=== PATIENT | female | born 1995 | race Hispanic/Latino ===

== ENCOUNTER 2019-02-21 19:15 | Inpatient (IN) | payer OTHER ==
[2019-02-21 23:21] VITALS: BMI 31.6
[2019-02-22] MEDS ORDERED: Misoprostol 100 MCG TAB ONE (00:02)
[2019-02-22] MEDS ORDERED: Acetaminophen 500 MG TAB PO PRN (00:08)
[2019-02-22] MEDS ORDERED: hydrALAZINE 20 MG/ML VIAL SLOW IVP PRN ×2 (00:08→23:42)
[2019-02-22] MEDS ORDERED: Ondansetron PF 4 MG/2 ML Vial IVP PRN ×3 (00:08→23:42)
[2019-02-22] MEDS ORDERED: Promethazine HCl 25 MG/ML VIAL IM PRN ×2 (00:08→12:56)
[2019-02-22] MEDS ORDERED: Butorphanol Tartrate 1 MG/ML VIAL SLOW IVP PRN (00:08)
[2019-02-22] MEDS ORDERED: Misoprostol 200 MCG TAB RC PRN (00:15)
[2019-02-22] MEDS ORDERED: Methylergonovine 0.2 MG/ML VIAL IM PRN (00:15)
[2019-02-22] MEDS ORDERED: Lidocaine 1% (PF) 30 ML VIAL SC PRN (00:15)
[2019-02-22] MEDS ORDERED: Carboprost 250 MCG/ML AMP IM PRN (00:15)
[2019-02-22] MEDS ORDERED: NS w/ Oxytocin 10 units 500 ML IV SCH ×2 (00:15)
[2019-02-22 00:26] LABS: Mean Corpuscular HGB CONC 35.3 g/dL (32.0-36.0); Mean Corpuscular Hemoglobin 30.8 pg (27.0-31.0); Mean Corpuscular Volume 87.1 fL (78.0-98.0); Mean Platelet Volume 12.5 fL (7.4-10.4); Platelet Count 114 thou/uL (130-400); RBC Distribution Width 12.8 % (11.5-14.5); Red Blood Cell (RBC) Count 4.22 mill/uL (4.20-5.40); White Blood Cell (WBC) Count 6.3 thou/uL (4.8-10.8)
[2019-02-22 01:00] LABS: Syphilis Antibody Nonreactive (Nonreactive); Syphilis Antibody Index 0.02 S/CO (<1.00 Non-Reactive)
[2019-02-22 01:01] LABS: HBSAg Index 0.16 S/CO (0-0.99); Hep B Surf Ag Non-Reactive S/CO (NonReactive)
[2019-02-22] MEDS: Misoprostol 100 MCG TAB VAG SCH ×3 (03:15→08:11)
[2019-02-22] MEDS ORDERED: Penicillin G Potassium 5 MILL.UNITS in Sodium Chloride 0.9% 100 ML IVPB SCH (06:00)
--- NOTE | 2019-02-22 08:28 | PDOC.LDHP ---
Labor and Delivery H&P Chief complaint: scheduled induction HPI: Pt is a 24yo G1 @ 40.2 weeks here for elective IOL. Current gestational age (weeks): 40 Due date: 02/20/19 Dating criteria: last menstrual period, first trimester ultrasound Grav: 1 Para: 0 Current complications: none Abnormal US findings: No Current medications: pre- vitamins Previous surgical history: none Allergies/Adverse Reactions: Allergies Allergy/AdvReac Type Severity Reaction Status Date / Time No Known Allergies Allergy Verified 02/21/19 23:13 Social history: none - Physical Exam Vital signs reviewed and normal: yes General: resting Heart: RRR Lungs: CTAB Abdomen: gravid Extremeties: no edema FHT: category 1 - Vaginal Exam cm dilated: 1 Station: -3 - OB Labs Blood type: O RH: positive Antibody Screen: negative HIV: negative RPR: negative HEPSAg: negative 1 hour GCT: negative GBS: positive Urine drug screen: negative Rubella: immune - Assessment L&D Assessment: elective induction at term - Plan Plan: admit to L&D, cervical ripening, labor augmentation if indicated, GBS antibiotic prophylaxis, informed consent obtained, anesthesia consult for pain management -: A/P: G1 @ 40.1 here for IOL. Will continue cervical ripening at this time, difficult exam due to patient discomfort-pt plans to get an epidural. FHT reassuring.
[2019-02-22] MEDS ORDERED: Fentanyl 4 mcg/Bup 0.1% Cadd 100 ML ONE ×2 (11:05→18:34)
[2019-02-22] MEDS ORDERED: Penicillin G Potassium 5 MILL.UNITS VIAL ONE (12:22)
--- NOTE | 2019-02-22 12:23 | PDOC.LDPN ---
Labor & Delivery Progress Note - Subjective Subjective: comfortable - Objective Vital signs reviewed and normal: yes General: NAD Uterine fundus: non tender Dilation: 2 Effacement: 90% Station: -1 FHT: category 1 Hester contractions every: 2 AROM: clear fluid - Assessment (1) 40 weeks gestation of Code(s): Z3A.40 - 40 WEEKS GESTATION OF Current Visit: Yes Status : Acute Plan: continue plan of care -: A/P: IOL @ 40.2 weeks, AROM now with favorable cervix, will start PCN for GBS+, pitocin when indicated.
[2019-02-22] MEDS: Lactated Ringer's 1,000 ML IV SCH (12:54)
[2019-02-22] MEDS ORDERED: Lactated Ringer's 500 ML IV PRN (12:56)
[2019-02-22] MEDS ORDERED: Naloxone HCl 0.4 mg/ml Vial IVP PRN ×2 (12:56)
[2019-02-22] MEDS ORDERED: diphenhydrAMINE 50 MG/ML VIAL IVP PRN (12:56)
[2019-02-22] MEDS ORDERED: ePHEDrine/0.9% NaCl/PF SYRINGE 50 mg/10 ml SLOW IVP PRN (12:56)
[2019-02-22] MEDS ORDERED: Acetaminophen 325 MG TAB PO PRN (12:56)
[2019-02-22] MEDS ORDERED: Communication Order-Pharmacy FS SCH (13:00)
[2019-02-22] MEDS ORDERED: Fentanyl 4 mcg/Bupivacaine 0.1% Cassette 100 ML EPIDURAL SCH (13:00)
[2019-02-22] MEDS: Penicillin G 2.5 MILL.units 50 ML IVPB SCH (17:10)
--- NOTE | 2019-02-22 20:44 | PDOC.EVN ---
Event Note - Event Note Event Note: Patient is complete, has been pushing about an hour, good efforts and descent. Anticipate .
[2019-02-22] MEDS ORDERED: Lidocaine 1% (PF) 30 ML VIAL ONE (21:29)
[2019-02-22] MEDS: NS / Oxytocin 40 units/1000ml 1,000 ML IV SCH ×2 (21:47→22:46)
--- NOTE | 2019-02-22 22:16 | PDOC.OPDEL ---
OB Operative/Delivery Note Delivery Dr/Surgeon: Raimundo Pre-Delivery Diagnosis: elective induction (at 40 weeks) Procedure/Post Delivery Dx: spontaneous vaginal delivery Weeks gestation: 4 - Findings A Sex: female - 1 min: 8 - 5 min: 8 - Additional Findings/Plan Placenta delivered: spontaneous Repaired Obstetrical Laceration: 4th degree Estimated blood loss: 647ml Compilations/Other Findings: 4th degree laceration repaired in routine fashion, approximately 1.5cm of rectal mucosa involved, reapproximated. Sphincter repaired, vaginal mucosa repaired and anatomy restored. Rectal mucosa palpates intact after repair. Ancef 2gm x 1 ordered for prophylaxis.
[2019-02-22] MEDS ORDERED: Bupivacaine/Epinephrine 0.25% 30 ML VIAL ONE (22:22)
[2019-02-22] MEDS ORDERED: Lidocaine 2% MPF 10 ML AMP (For Epidural Use) ONE (22:22)
[2019-02-22] MEDS ORDERED: Bupivacaine 0.25% HCL 30 ML VIAL ONE (22:22)
[2019-02-22] MEDS ORDERED: CEFAZOLIN 2 GM in Premix Bag 1 BAG IVPB SCH (22:30)
[2019-02-22] MEDS ORDERED: Preparation H Ointment 28 GM TUBE PR PRN (23:42)
[2019-02-22] MEDS ORDERED: Bisacodyl 10 MG SUPP PR PRN (23:42)
[2019-02-22] MEDS ORDERED: Lanolin Ointment 7 GM TUBE TOP PRN (23:42)
[2019-02-22] MEDS ORDERED: Benzocaine-Menthol 82.5 ML CAN TOP PRN (23:42)
[2019-02-22] MEDS ORDERED: HYDROcodone/Acetaminophen 5/325 mg Tablet PO PRN ×2 (23:42)
[2019-02-22] MEDS ORDERED: diphenhydrAMINE 25 MG CAP PO PRN (23:42)
[2019-02-22] MEDS ORDERED: NS / Oxytocin 40 units/1000ml 1,000 ML IV SCH (23:42)
[2019-02-23] MEDS: Ibuprofen 800 MG TAB PO SCH ×3 (01:02→21:38)
[2019-02-23] MEDS: Lactated Ringer's 1,000 ML IV SCH ×2 (01:59→02:00)
[2019-02-23] MEDS: Misoprostol 100 MCG TAB VAG SCH (02:00)
[2019-02-23] MEDS: Penicillin G 2.5 MILL.units 50 ML IVPB SCH ×2 (02:00→02:01)
[2019-02-23] MEDS ORDERED: Adacel (T-DAP) 0.5 ML SYRINGE IM ONE (09:00)
--- NOTE | 2019-02-23 09:06 | PDOC.PP ---
Post Progress Note Post Day #: 1 Subjective: doing well, minimal discomfort, offering breast to baby PO intake tolerated: yes Flatus: yes Ambulation: yes Vital Signs (12 hours) Temp Pulse Resp BP Pulse Ox 02/23/19 07:33 97.8 F 73 14 115/63 02/23/19 05:00 98.2 F 77 18 113/63 02/23/19 02:15 98.1 F 86 18 112/58 L 02/23/19 01:00 98.6 F 85 20 133/82 02/23/19 00:10 98.4 F 75 20 146/88 H 99 Weight Weight 173 lb - Physical Examination General: NAD Respiratory: non-labored breathing Fundus firm & at: below umb Skin: no rash Neurological: no gross focal deficits Psychiatric: A&Ox3, normal affect Result Diagrams: 02/22/19 00:14 Additional Labs: Post Labs Blood Type O POSITIVE 02/22/19 01:01 Hep Bs Antigen Non-Reactive S/CO (NonReactive) 02/22/19 00:14 (1) 40 weeks gestation of Code(s): Z3A.40 - 40 WEEKS GESTATION OF Status: Acute (2) Fourth degree laceration of perineum during delivery, Code(s): O70.3 - FOURTH DEGREE PERINEAL LACERATION DURING DELIVERY Status: Acute - Assessment/Plan PPD1, IOL for 40.2 weeks with complicated by 4th degree laceration involving approx 1.5cm of rectal mucosa at anal verge. Reviewed use of sitz bath and stool softenes. Pt with minimal discomfort after repair.
[2019-02-23] MEDS: Ferrous Sulfate 325 MG TAB PO SCH ×2 (09:29→20:59)
[2019-02-23] MEDS: Prenatal Vitamin 1 TAB PO SCH (09:30)
[2019-02-23] MEDS: Docusate Calcium (SURFAK) 240 MG CAP PO SCH ×2 (09:30→21:38)
[2019-02-23] MEDS: Milk Of Magnesia 30 ML UDCUP PO PRN (09:33)
[2019-02-24] MEDS: Ibuprofen 800 MG TAB PO SCH (06:06)
[2019-02-24 06:14] VITALS: TEMP 97.7
--- NOTE | 2019-02-24 08:50 | PDOC.PP ---
Post Progress Note Post Day #: 2 Subjective: doing very well, has not had BM, minimal pain at perineum, min lochia PO intake tolerated: yes Flatus: yes Ambulation: yes Vital Signs (12 hours) Temp Pulse Resp BP 02/24/19 06:13 97.7 F 71 16 118/72 02/24/19 01:00 98.1 F 88 16 112/53 L Weight Weight 173 lb - Physical Examination General: NAD Respiratory: non-labored breathing Abdominal: no distention Fundus firm & at: below umb Neurological: no gross focal deficits Psychiatric: A&Ox3, normal affect Result Diagrams: 02/22/19 00:14 Additional Labs: Post Labs Blood Type O POSITIVE 02/22/19 01:01 Hep Bs Antigen Non-Reactive S/CO (NonReactive) 02/22/19 00:14 (1) 40 weeks gestation of Code(s): Z3A.40 - 40 WEEKS GESTATION OF Status: Acute (2) Fourth degree laceration of perineum during delivery, Code(s): O70.3 - FOURTH DEGREE PERINEAL LACERATION DURING DELIVERY Status: Acute - Assessment/Plan PPD2 doing well, continue pericare at home, colace BID x 30 days reviewed, has exam scheduled for my office next week.
[2019-02-24] MEDS: Milk Of Magnesia 30 ML UDCUP PO PRN (09:05)
[2019-02-24] MEDS: Prenatal Vitamin 1 TAB PO SCH (09:05)
[2019-02-24] MEDS: Docusate Calcium (SURFAK) 240 MG CAP PO SCH (09:05)
[2019-02-24] MEDS: Ferrous Sulfate 325 MG TAB PO SCH (09:08)
[2019-02-24 11:45] VITALS: BP 139/80
== END 2019-02-24 13:45 | disposition home or self-care (01) | DRG 768 ==
LOC: L&D 22:43 → 3SW 02-23 00:28
PROVIDERS: ADMIT Obstetrics & Gynecology; ATTEND Obstetrics & Gynecology
PROC: 10E0XZZ Delivery of Products of Conception, External Approach (ICD-10-PCS; principal; 2019-02-22)
PROC: 0DQP0ZZ Repair Rectum, Open Approach (ICD-10-PCS; 2019-02-22)
PROC: 3E0P7VZ Introduction of Hormone into Female Reproductive, Via Natural or Artificial Opening (ICD-10-PCS; 2019-02-22)
PROC: 10907ZC Drainage of Amniotic Fluid, Therapeutic from Products of Conception, Via Natural or Artificial Opening (ICD-10-PCS; 2019-02-22)
PROC: 3E033VJ Introduction of Other Hormone into Peripheral Vein, Percutaneous Approach (ICD-10-PCS; 2019-02-22)
DX: O48.0 Post-term pregnancy (principal); Z37.0 Single live birth; O70.3 Fourth degree perineal laceration during delivery; Z3A.40 40 weeks gestation of pregnancy; O99.824 Streptococcus B carrier state complicating childbirth
CPT/HCPCS: 36415; 36416; 85027; 86780; 86850; 86900; 86901; 87340; J0690; J2001; J2405; J2540; J2590; S0020

== ENCOUNTER 2020-10-07 20:25 | Emergency (ER) | payer OTHER, SELFPAY ==
[~2020-10-07 20:25] MED LIST: Iopamidol-370 76% 500 ML 1 ML ONE
[2020-10-07] MEDS ORDERED: HYDROcodone/Acetaminophen 5/325 mg Tablet ONE (22:01)
== END 2020-10-07 22:25 | disposition home or self-care (01) ==
LOC: ERS 20:25
DX: S42.024A Nondisplaced fracture of shaft of right clavicle, initial encounter for closed fracture (principal); V49.9XXA Car occupant (driver) (passenger) injured in unspecified traffic accident, initial encounter
CPT/HCPCS: 70450; 71045; 71260; 72125; 72170; 74177; G0390; Q9967

== ENCOUNTER 2023-02-18 11:05 | Outpatient (CLI) | payer MEDICAID | END 2023-02-18 11:06 | disposition home or self-care (01) | LOC: BICULT 11:05 | PROVIDERS: ATTEND Obstetrics & Gynecology | DX: N64.4 Mastodynia (principal) ==